=== PATIENT | female | born 2000 | race Hispanic/Latino ===

== ENCOUNTER 2020-02-26 16:09 | Emergency (ER) | payer MEDICAID, OTHER ==
[~2020-02-26 16:09] MED LIST: PREN1TAB26 PO
[2020-02-26 16:47] LABS: APPEARANCE,URINE CLOUDY (CLEAR); BILIRUBIN,URINE NEGATIVE (NEGATIVE); COLOR,URINE YELLOW (YELLOW); GLUCOSE, URINE (UA) NEGATIVE (NEGATIVE); KETONES,URINE NEGATIVE (NEGATIVE); LEUKOCYTE ESTERASE ,URINE MODERATE (NEGATIVE); NITRATE,URINE NEGATIVE (NEGATIVE); OCCULT BLOOD,URINE LARGE (NEGATIVE); PH,URINE 7.5 (5.0-8.0); PROTEIN,URINE >=300 mg/dL (NEGATIVE)
[2020-02-26 16:52] LABS: HCG,QUAL RESULT NEGATIVE (NEGATIVE)
[2020-02-26 17:01] LABS: RBC,URINE 51-100 /HPF (0-1); WBC,URINE 26-50 /HPF (0-1)
[2020-02-26 17:02] LABS: BACTERIA,URINE Few /HPF (None Seen); SQUAMOUS EPITHELIAL CELL,UR Rare /HPF (0-2)
[2020-02-26] MEDS ORDERED: LIDOCAINE HCL-MPF 1% 2ML VIAL ONE (17:23)
[2020-02-26] MEDS ORDERED: PHENAZOPYRIDINE HCL 200 MG TABLET ONE (17:24)
[2020-02-26] MEDS ORDERED: CEFTRIAXONE SODIUM 1 GM ONE (17:24)
== END 2020-02-26 17:49 | disposition home or self-care (01) ==
LOC: EDH 16:09
DX: N39.0 Urinary tract infection, site not specified (principal); R31.9 Hematuria, unspecified; Z98.890 Other specified postprocedural states
CPT/HCPCS: 81001; 81025; 87088; 96372; 99283; J0696; J3490

== ENCOUNTER 2020-10-17 23:26 | Emergency (ER) | payer OTHER, SELFPAY ==
[2020-10-18] MEDS ORDERED: AMOX/CLAV 875/125MG TAB PO ONE (01:05)
== END 2020-10-18 01:44 | disposition home or self-care (01) ==
LOC: EDH 23:26
DX: J02.9 Acute pharyngitis, unspecified (principal); H66.90 Otitis media, unspecified, unspecified ear; Z20.822 Contact with and (suspected) exposure to COVID-19
CPT/HCPCS: 87426; 87804 ×2; 87880; 99283; U0003